=== PATIENT | female | born 1995 | race Caucasian/White ===

== ENCOUNTER 2016-10-09 14:52 | Emergency (ER) | payer OTHER ==
[2016-10-09 15:03] VITALS: BP 124/75
--- OUTSIDE RECORDS SUMMARY | 2016-10-09 15:18 | XMS REPORT | Continuity of Care Document ---
:1995 Author Organization [facility] ([facility]) Address [address] [place] [address] Phone [phone] Care Team Providers Name Role Phone Eren Chen Glenn Primary Care Provider [phone] Source Comments This disclosure is being made pursuant to the Care Everywhere program, applicable federal and state laws, and may not contain all informaitonavailable regarding this patient.[facility] ([facility]) Active Allergies and Adverse Reactions Allergen Noted Date Severity Reactions Comments Cat Hair 11/11/2010 Medium Asthma Milk 11/11/2001 Low Diarrhea Current Medications Prescription Sig. Disp. Refills Start Date End Date Status Albuterol, Refill, Use 2 Puffs by Active 90 mcg/Actuation inhalation 4 times Aero daily as needed. ibuprofen (MOTRIN) Take 600 mg by mouth Active 600 mg tablet every 6 hours as needed. omeprazole 20 mg TAKE ONE CAPSULE 1/2 60 Cap 11 06/06/2012 Active extended release HOUR BEFORE A MEAL capsule IN THE AM FOR 7 DAYS, IF NO IMPROVEMENT TAKE 2 CAPSULES DAILY. Indications: Dyspepsia cetirizine (ZYRTEC) Take 1 Tab by mouth 30 Tab 11 07/12/2012 Active 10 mg tablet daily. Indications: ALLERGIC RHINITIS fluticasone-salmeter Use 1 Puff by 1 Inhaler 11 09/05/2012 Active ol (ADVAIR 250-50) inhalation every 12 inhaler hours. Indications: BRONCHOSPASM PREVENTION WITH COPD montelukast Take 1 Tab by mouth 30 Tab 11 09/05/2012 Active (SINGULAIR) 10 mg daily. Indications: tablet ASTHMA PREVENTION ethynodiol-ethinyl Take 1 Tab by mouth 28 Tab 12 05/02/2014 Active estradiol (ZOVIA daily. Indications: 1/50E, 28,) tablet Acne tazorotene (TAZORAC) apply topically at 30 g 11 05/20/2014 Active 0.1 % cream bedtime. Apply to face/chest/back every evening Indications: ACNE VULGARIS Active Problems Problem Noted Date Asthma, moderate 09/05/2012 Abdominal pain, periumbilical 08/23/2011 Social History Tobacco Use Types Packs/Day Years Used Date Never Smoker Smokeless Tobacco: Never Used Alcohol Use Drinks/Week oz/Week Comments No Last Filed Vital Signs Vital Sign Reading Time Taken Blood Pressure 114/72 09/26/2012 4:24 PM CDT Pulse 66 09/26/2012 4:24 PM CDT Temperature 36.9 C (98.4 F) 09/26/2012 4:24 PM CDT Respiratory Rate 12 09/26/2012 4:24 PM CDT Height 1.6 m (5' 3") 04/06/2012 10:00 AM [employer] Weight 80.287 kg (177 lb) 09/26/2012 4:24 PM CDT Body Mass Index - - Oxygen Saturation 100% 08/23/2011 1:30 PM CDT Plan of Care Health Maintenance Due Date Last Done Comments Hepatitis B Vaccine (1 of 3 - Primary Series) 1995 HPV Vaccine (1 of 3 - Female/Unknown 3 Dose Series) 2006 Tdap Vaccine 2006 Meningococcal Vaccine (1 of 1) 2011 Cervical Cancer Screening 2013 Lipid Disorder Screening 2013 MMR Vaccine 2013 Td Vaccine 2013 Varicella Vaccine (1 of 2 - Adult - No Evidence of 2013 Immunity) Pneumococcal Vaccine (1 of 1 - PPSV23) 2014 Influenza Vaccine: Seasonal (#1) 12/21/2015 Results from Last 3 Months Not on file
--- NOTE | 2016-10-09 15:24 | ERNOTE ---
ENT HPI Presenting Symptoms: other Time Seen by Provider: 10/09/16 15:07 Source: patient Exam Limitations: no limitations - Immun/Allergies/Home Medications Immunizations: IMMUNIZATION HX Immunizations Up to Date Yes History of Influenza Vaccine No Allergies/Adverse Reactions: Allergies Allergy/AdvReac Type Severity Reaction Status Date / Time No Known Allergies Allergy Unverified 10/09/16 15:03 Home Medications: HOME MEDICATIONS Ethynodiol D-Ethinyl Estradiol [Zovia 1-35E Tablet] 1 each PO DAILY 10/09/16 [ Last Taken Unknown] - History of Present Illness Narrative: Patient has had a sore throat for a couple of days, slight congestion ('from my allergies'), was exposed to strep and wants to make sure that she does not have anything contagious. She is visiting from out of town, has mild asthma, rarely uses her inhaler Review of Systems - Review of Systems Constitutional: Absent: recent illness, fever, fussy ENT: Present: nose congestion, sore throat. Absent: nasal drainage Respiratory: Absent: shortness of breath, cough Cardiology: Absent: chest pain Gastrointestinal/Abdominal: Absent: nausea, vomiting, abdominal pain Genitourinary: Present: no symptoms reported Neurological: Absent: headache - Patient's Past Medical History Patient History - Medical: No pertinent hx Patient History - Cardiac/Respiratory: Asthma Patient History - Cancer: No Hx of Cancer Patient History - Surgical Procedures: T & A, Other LMP (females 10-50): last week - Social History Living Situations: home Psych History: No pertinent hx Smoking Status: Never smoker Alcohol Use: occasionally Drug Use: none - Immunizations Immunizations Up to Date: Yes History of Influenza Vaccine: No Physical Exam - Physical Exam General Appearance: Present: wd/wn, no apparent distress Eye Exam: Normal inspection: bilateral, PERRL: bilateral Ears, Nose, Throat: Present: normal ENT inspection, normal pharynx Neck: Present: normal inspection, nontender. Absent: lymphadenopathy (R), lymphadenopathy (L) Respiratory: Present: no respiratory distress, normal breath sounds, no accessory muscle use, lungs clear Cardiovascular/Chest: Present: regular rate, rhythm, no murmur Neurological Exam: Present: alert, oriented, normal mood/affect Skin Exam: Present: normal color, warm/dry ED Progress - Results and Orders Patient's Lab Results:: I have reviewed the patient's lab results. - Vital Signs Patient's Vital Signs:: I have reviewed the patient's vital signs. Vital Signs: Vital Signs 10/09/16 15:00 Temperature 36.6 C Pulse Rate 85 Respiratory 16 Rate Blood Pressure 124/75 O2 Sat by Pulse 98 Oximetry - Progress/Reassessment Chief Complaint: Sore Throat Progress Note-Subjective: 10/09/16 15:23 discussed results with patient, offered pain meds patient declined Departure Clinical Impression: Viral pharyngitis - Departure Disposition: Home self-care Condition: Good Instructions: Pharyngitis, [id number] Additional Instructions: use over the counter medications as needed follow up with your doctor back home if your don't get better over the next 3-5 days
== END 2016-10-09 15:26 | disposition home or self-care (01) ==
LOC: ER 14:52
DX: J02.8 Acute pharyngitis due to other specified organisms (principal)